=== PATIENT | male | born 1990 | race African-American/Black ===

== ENCOUNTER 2023-06-28 15:25 | Emergency (ER) | payer SELFPAY ==
[~2023-06-28] VITALS: Ht 167.6 cm; Wt 75.0 kg
[2023-06-28 15:28] VITALS: O2SAT 100
[2023-06-28] MEDS: IBUPROFEN 600MG TABLET PO ONE (16:00)
[2023-06-28] MEDS: LIDOCAINE HCL 1% 20ML VIAL (Pyxis) INJ INFIL ONE (16:00)
[2023-06-28] MEDS: TETANUS, DIPHTHERIA, PERTUSSIS VAC/PF 0.5ML (>10YR OLD) IM ONE (16:30)
[2023-06-28] MEDS ORDERED: DOXY100T2 MT (17:10)
[2023-06-28] MEDS ORDERED: NAPR-677 MT (17:11)
[2023-06-28 17:30] VITALS: BP 131/79; PULSE 84; RESP 16; TEMP 97.6
== END 2023-06-28 18:29 | disposition home or self-care (01) ==
LOC: ER 15:25
DX: S62.633B Displaced fracture of distal phalanx of left middle finger, initial encounter for open fracture (principal); X58.XXXA Exposure to other specified factors, initial encounter; Y93.89 Activity, other specified; Y92.89 Other specified places as the place of occurrence of the external cause; Y99.8 Other external cause status
CPT/HCPCS: 73130; 90715; 12002; 90471; 99283; J3490; Z7610 ×3

== ENCOUNTER 2023-07-08 13:29 | Emergency (ER) | payer SELFPAY ==
[~2023-07-08] VITALS: Ht 165.1 cm; Wt 65.0 kg
[~2023-07-08 13:29] MED LIST: DOXY100T2 MT; NAPR-677 MT
[2023-07-08 13:33] VITALS: O2SAT 100
[2023-07-08 14:22] VITALS: BP 112/78; PULSE 53; RESP 14; TEMP 98.4
== END 2023-07-08 14:23 | disposition home or self-care (01) ==
LOC: ER 13:29
DX: S61.218D Laceration without foreign body of other finger without damage to nail, subsequent encounter (principal); X58.XXXD Exposure to other specified factors, subsequent encounter
CPT/HCPCS: 99281